=== PATIENT | female | born 1960 | race Caucasian/White ===

== ENCOUNTER → 2020-05-21 | Outpatient (CLI) | payer OTHER ==
[2020-05-21 14:57] VITALS: BP 119/73; PULSE 71; RESP 18; TEMP 97.9
--- NOTE | 2020-05-21 16:17 | P.GSHP ---
History of Present Illness H&P Date: 05/21/20 Chief Complaint: rupured right breast implant, cyst in breast Seda is a 59-year-old white female seen in consultation for Dr. Marley regarding a ruptured right breast implant as well as radiographic abnormality of system both breasts. She underwent bilateral implant placement 17 years ago. The patient believes that the implant has been ruptured for approximately 6 years. She is not complaining of pain related to the ruptured implant. These were saline implants. She does not feel any lumps masses or nodules in her breast. Bilateral mammogram 650506 this revealed ruptured right breast implant and nodular densities in both breast [place] [address] this revealed Caffeine: 2 cups per day Nicotine: 3-5 cigarettes per day, for 46 years edil-bromine: none Family history: Paternal Uncle::colon Cancer Hormonal history: Menarche: 13 G3,P3, breast fed: yes, age at first : 16 menopause: hysterectomy at 23 uterus dropped BCP: < 1 year Surgical history: hysterectomy Medical History: graves disease Social History: smoke: 3-5 cigarettes per day Alcohol: There is Drugs: Negative - Constitutional Constitutional: Denies chills, Denies fever - EENT Eyes: bilateral dry eye Ears: deny: decreased hearing, tinnitus Ears, nose, mouth and throat: Reports headache, Denies sore throat - Breasts Breasts: bilateral: as per HPI - Cardiovascular Cardiovascular: Denies chest pain, Denies shortness of breath - Respiratory Respiratory: Denies cough, Denies 7 - Gastrointestinal Gastrointestinal: Denies abdominal pain, Denies diarrhea, Denies nausea, Denies vomiting - Genitourinary (Female) Genitourinary: Denies dysuria, Denies hematuria - Menstruation Menstruation: Reports post hysterectomy - Musculoskeletal Musculoskeletal: Denies myalgias - Integumentary Integumentary: Denies pruritus, Denies rash - Neurological Neurological: Denies numbness, Denies weakness - Psychiatric Psychiatric: Denies anxiety, Denies depression - Endocrine Endocrine: Reports weight change, Denies fatigue - Hematologic/Lymphatic Comment: none - Allergic/Immunologic Allergic/Immunologic: Reports as per HPI Past Medical History History of Any Multi-Drug Resistant Organisms: None Reported Smoking Status: Current every day smoker Medications and Allergies Home Medications Medication Instructions Recorded Confirmed Type Ascorbic Acid [Vitamin C] 500 mg PO DAILY 05/21/20 05/21/20 History Cholecalciferol (Vitamin D3) 125 mcg PO DAILY 05/21/20 05/21/20 History [Vitamin D3 (5000 Iu)] FLUoxetine HCL [PROzac] 20 mg PO QAM 05/21/20 05/21/20 History Zinc 50 mg PO DAILY 05/21/20 05/21/20 History Allergies Allergy/AdvReac Type Severity Reaction Status Date / Time acetaminophen [From Percocet] Allergy Nausea & Unverified 05/21/20 14:51 Vomiting oxycodone [From Percocet] Allergy Nausea & Unverified 05/21/20 14:51 Vomiting Surgical - Exam Vital Signs Temp Pulse Resp BP Pulse Ox 97.9 F 71 18 119/73 97 05/21/20 14:54 05/21/20 14:54 05/21/20 14:54 05/21/20 14:54 05/21/20 14:54 BMI 26.8 - General well developed, no distress - Eyes normal ocular movement - ENT normal pinna, normal mucosa - Neck trachea midline - Respiratory normal respiratory effort, clear to auscultation - Cardiovascular Rhythm: regular Heart Sounds: normal: S1, S2 - Abdomen Abdomen: soft - Integumentary normal turgor - Neurologic no disoriented, no combative - Musculoskeletal normal gait - Psychiatric oriented to time, oriented to person, oriented to place, speech is normal, memory intact breast exam: BRA: 36DD inspection: Asymmetry of the breast related to ruptured implant on the right Palpation: Right breast: Multi-positional exam reveals fibrocystic changes as well as palpation of ruptured implant Right axilla: No adenopathy of concern Left breast: Contracture with pain on examination, fibrocystic changes Left axilla: No adenopathy of concern Breasts are very difficult to examine secondary to implants. Results Mammogram and ultrasound results reviewed Assessment and Plan Assessment: Impression: 1. Radiographic abnormality showing nodular densities on both implants resulting in diagnosis of BIRADS 3 2. Marked asymmetry of the breast related to the implants 3. Contracture of the left breast implant; Bakers class IV 4. Rupture of right breast implant 5. Graves' disease 6. Fibromyalgia in remission at this time Plan: 1. patient wishes implants to be removed, very difficult to examine breast 2. abnormal ultrasound and mammogram nodular densities bilateral on implants 3. Depression/anxiety 4. GERD 5. sleep apnea 6. nodular densities in both breasts on the implants, right breast implant ruptured left breast implant nodular density inferiorly 7. If patient is does not have the implants removed bilateral mammogram at, ultrasound and examination in 6 months. The patient has extremely difficult to examine breast secondary to the ruptured implant on the right and the implant on the left with the contracture. Radiographically there are lesions of concern in both breasts on the implants. The patient is also very anxious about the implants and wishes them to be removed. It is difficult to find clothes that fit and they are painful with any manipulation. We would recommend bilateral implant removal to decrease the risk of an incipient malignancy.
== END | disposition home or self-care (01) ==
LOC: WWCWWP 14:32
PROVIDERS: ATTEND Surgery
DX: T85.43XD Leakage of breast prosthesis and implant, subsequent encounter (principal); E05.00 Thyrotoxicosis with diffuse goiter without thyrotoxic crisis or storm; M79.7 Fibromyalgia; Z98.82 Breast implant status; F17.210 Nicotine dependence, cigarettes, uncomplicated; Z79.899 Other long term (current) drug therapy